=== PATIENT | female | born 1995 | race Caucasian/White ===

== ENCOUNTER 2021-11-21 15:59 | Emergency (ER) | payer SELFPAY ==
[~2021-11-21] VITALS: Ht 162.6 cm; Wt 68.0 kg
[2021-11-21 17:04] LABS: BILIRUBIN,URINE NEGATIVE (NEG); CLARITY,URINE CLEAR; COLOR,URINE YELLOW; NITRITE,URINE NEGATIVE (NEG); PROTEIN,URINE NEGATIVE (NEG-TRACE); UROBILINOGEN,URINE 0.2 mg/dL (0.2 mg/dL)
[2021-11-21 17:08] LABS: U PREG PATIENT NEGATIVE (NEG)
[2021-11-21 17:27] LABS: AMPHETAMINE/METHAMPHETAMINE NEG (NEG); BARBITURATES NEG (NEG); BENZODIAZEPINES NEG (NEG); CANNABINOIDS NEG (NEG); COCAINE NEG (NEG); METHADONE NEG (NEG); OPIATES NEG (NEG); PHENCYCLIDINE NEG (NEG)
[2021-11-21 17:30] LABS: BACTERIA,URINE 0 /HPF (0-FEW)
[2021-11-21] MEDS: ACETAMINOPHEN 500 MG TABLET PO ONE (17:47)
[2021-11-21 17:49] VITALS: BP 101/58
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
== END 2021-11-21 18:22 | disposition home or self-care (01) ==
LOC: ER 15:59 → EEVIPCON 15:59 → ER 18:22
DX: R10.30 Lower abdominal pain, unspecified (principal); F17.200 Nicotine dependence, unspecified, uncomplicated; F19.10 Other psychoactive substance abuse, uncomplicated
CPT/HCPCS: 80307; 81001; 81025; 99283